=== PATIENT | female | born 1975 | race Caucasian/White ===

== ENCOUNTER 2021-05-05 17:51 | Emergency (ER) | payer OTHER, BC ==
[2021-05-05 18:21] VITALS: BP 125/83; PULSE 78; TEMP 97.9; BMI 29.1
[2021-05-05] MEDS ORDERED: KETOROLAC TROMETHAMINE 30 MG/1 ML VIAL IM ONE (20:35)
[2021-05-05] MEDS ORDERED: KETOROLAC TROMETHAMINE 30 MG/1 ML VIAL ONE (20:35)
== END 2021-05-05 20:53 | disposition home or self-care (01) ==
LOC: JERFT 17:51
PROC: 3E0233Z Introduction of Anti-inflammatory into Muscle, Percutaneous Approach (ICD-10-PCS; principal; 2021-05-05)
DX: M54.12 Radiculopathy, cervical region (principal)
CPT/HCPCS: 99283-25